=== PATIENT | male | born 1970 | race Caucasian/White ===

== ENCOUNTER → 2024-08-25 | Outpatient (CLI) | payer BC, SELFPAY ==
--- NOTE | 2024-08-25 | XR_ITS ---
Examination: PA lateral chest 2 views TECHNIQUE: Upright PA lateral chest 2 views Exam date and time: August 25, 2024 1228 hours Comparison December 14, 2014 INDICATIONS: Coughing shortness of breath beginning 9 days ago FINDINGS: Significant bibasilar left upper lobe pneumonia Normal heart size Intact osseous structures IMPRESSION: Significant bilateral pneumonia
[2024-08-25 13:43] LABS: Basophils % (Auto) 0 % (0-2.5); Eosinophils % (Auto) 1 % (0-10); Hemoglobin 15.1 g/dL (13.5-16.0); Immature Granulocytes % (Auto) 1 % (0-0); Immature Granulocytes Auto 0.04 Thou/mm3 (0.00-0.00); Lymphocytes # (Auto) 0.5 Thou/mm3 (1.0-4.8); Lymphocytes % (Auto) 8 % (10-50); Mean Corpuscular HGB Conc 35.1 g/dl (31.0-37.0); Mean Corpuscular Hemoglobin 32.3 pg (25.0-35.0); Mean Corpuscular Volume 92 fL (80-100); Monocytes # (Auto) 0.3 Thou/mm3 (0.0-0.8); Monocytes % (Auto) 6 % (0-12); Neutrophils # (Auto) 4.9 Thou/mm3 (1.8-7.7); Neutrophils % (Auto) 84 % (37-80); Nucleated Red Blood Cell % 0 /100 WBC (0); Platelet Count 212 Thou/mm3 (140-440); RDW Standard Deviation 40.6 fL (35.1-43.9); Red Blood Count 4.67 Miln/mm3 (4.50-5.90); White Blood Count 5.8 Thou/mm3 (3.8-10.6)
[2024-08-25 13:59] LABS: Alanine Aminotransferase 25 U/L (10-49); Albumin, Serum 4.5 gm/dL (3.5-5.0); Albumin/Globulin Ratio 2.3 (1.2-2.2); Alkaline Phosphatase 39 U/L (46-116); Anion Gap 5 (7-16); Aspartate Amino Transferase 32 U/L (0-34); BUN/Creatinine Ratio 17 Ratio (12-20); Bilirubin,Total 0.5 mg/dL (0.3-1.2); Blood Urea Nitrogen 20 mg/dL (9-23); Carbon Dioxide 28.8 mMol/L (20.0-31.0); Chloride 99 mMol/L (98-107); Creatinine (Component) 1.2 mg/dL (0.6-1.3); Glucose 112 mg/dL (74-106); Osmolality,Calculated 269 (275-295); Potassium 5.1 mMol/L (3.4-5.1); Sodium 133 mMol/L (136-145); Total Protein 6.5 gm/dL (5.7-8.2); eGFR > 60 See Note
[2024-08-26 16:00] LABS: Cocci Serology, IgM Negative (Negative)
[2024-08-28 14:53] LABS: Cocci Serology, IgG Negative (Negative)
== END | disposition home or self-care (01) ==
PROVIDERS: PCP Family Medicine; Referring Provider Physician Assistant; Visit Provider Radiology Diagnostic Radiology
DX: J18.9 Pneumonia, unspecified organism (principal); J11.1 Influenza due to unidentified influenza virus with other respiratory manifestations
CPT/HCPCS: 36415; 71046; 80053; 85025; 86331; 86635

== ENCOUNTER → 2024-09-08 | Outpatient (CLI) | payer BC, SELFPAY ==
--- NOTE | 2024-09-08 12:06 | XR_ITS ---
Examination: PA lateral chest 2 views TECHNIQUE: Upright PA lateral chest 2 views Exam date and time: September 08, 2024 1242 hours Comparison August 25, 2024 INDICATIONS: Difficulty breathing this week, bibasilar pneumonia on chest film 03/25/2024 FINDINGS: Bilateral pneumonia has cleared Moderate hyperexpansion Normal heart size IMPRESSION: Bilateral pneumonia has cleared
[2024-09-08 13:05] LABS: Basophils # (Auto) 0.1 Thou/mm3 (0.0-0.2); Basophils % (Auto) 1 % (0-2.5); Eosinophils # (Auto) 0.1 Thou/mm3 (0.0-0.5); Eosinophils % (Auto) 2 % (0-10); Hematocrit 44.2 % (41.0-53.0); Hemoglobin 15.1 g/dL (13.5-16.0); Immature Granulocytes % (Auto) 0 % (0-0); Immature Granulocytes Auto 0.02 Thou/mm3 (0.00-0.00); Lymphocytes % (Auto) 42 % (10-50); Mean Corpuscular HGB Conc 34.2 g/dl (31.0-37.0); Mean Corpuscular Hemoglobin 32.2 pg (25.0-35.0); Mean Corpuscular Volume 94 fL (80-100); Monocytes # (Auto) 0.5 Thou/mm3 (0.0-0.8); Monocytes % (Auto) 11 % (0-12); Neutrophils % (Auto) 43 % (37-80); Nucleated Red Blood Cell % 0 /100 WBC (0); Platelet Count 333 Thou/mm3 (140-440); RDW Standard Deviation 43.5 fL (35.1-43.9); Red Blood Count 4.69 Miln/mm3 (4.50-5.90); White Blood Count 4.7 Thou/mm3 (3.8-10.6)
[2024-09-08 13:21] LABS: Alanine Aminotransferase 24 U/L (10-49); Albumin, Serum 4.2 gm/dL (3.5-5.0); Albumin/Globulin Ratio 2.1 (1.2-2.2); Alkaline Phosphatase 46 U/L (46-116); Anion Gap 7 (7-16); Aspartate Amino Transferase 25 U/L (0-34); BUN/Creatinine Ratio 13 Ratio (12-20); Bilirubin,Total 0.7 mg/dL (0.3-1.2); Blood Urea Nitrogen 15 mg/dL (9-23); Calcium 9.2 mg/dL (8.3-10.6); Calcium (Corrected) 9.2 mg/dL (8.5-10.1); Chloride 101 mMol/L (98-107); Creatinine (Component) 1.2 mg/dL (0.6-1.3); Glucose 84 mg/dL (74-106); Osmolality,Calculated 269 (275-295); Potassium 4.5 mMol/L (3.4-5.1); Sodium 135 mMol/L (136-145); Total Protein 6.2 gm/dL (5.7-8.2); eGFR > 60 See Note
[2024-09-08 15:34] LABS: Cocci Serology, IgM Negative (Negative)
[2024-09-09 15:24] LABS: Cocci Serology, IgG Negative (Negative)
== END | disposition home or self-care (01) ==
LOC: COPL 11:52
PROVIDERS: PCP Physician Assistant; Referring Provider Physician Assistant; Visit Provider Radiology Diagnostic Radiology
DX: J18.9 Pneumonia, unspecified organism (principal)
CPT/HCPCS: 36415; 71046; 80053; 85025; 86331; 86635

== ENCOUNTER 2024-09-10 08:42 | Emergency (ER) | payer BC, SELFPAY ==
[2024-09-10 08:42] VITALS: BMI 25.1
[2024-09-10 08:50] VITALS: BP 116/72; PULSE 70; RESP 18; TEMP 36.4; O2SAT 98
--- NOTE | 2024-09-10 08:57 | XR_ITS ---
Examination: CT abdomen with intravenous contrast CT pelvis with intravenous contrast 2-D coronal reconstructions 2-D sagittal reconstructions Date and time of exam:September 10, 2020 4:10 AM Indications: Severe right lower abdominal pain onset today. CTDI: vol (mGy) 6.92 DLP: (mGycm) 348 Technique: Multiple axial sections of the abdomen and pelvis have been obtained. 64 slice high-resolution scanner used. 3 mm axial sections have been obtained, post intravenous injection 60 cc [id number] 2-D sagittal, coronal reconstructions obtained. Low dose protocols were performed. One or more of the following dose reduction techniques were used; automated exposure control, adjustment of the mA and/or KV according to patient size, use of iterative reconstruction technique. Findings: No focal liver lesions or biliary tract dilatation Contracted gallbladder No splenic or pancreatic mass Normal adrenal glands. No renal or ureteral calculi, no hydronephrosis Aorta normal size Thickened fluid-filled tubular structure medial to the cecum, axial images 118 10/14/1933, coronal images 54 through 77 suspicious for inflamed appendix No pelvic abscess Contracted urinary bladder, urinary bladder wall thickening The osseous structures are intact Impression: Findings suspicious for acute appendicitis without pelvic abscess The appearance should be clinically correlated
--- NOTE | 2024-09-10 08:57 | PD.EDRME ---
Rapid Medical Screening Exam RME Arrival date/time: 09/10/24 08:42 53-year-old male presents emergency department complaining of right lower quadrant that started this morning. Chief Complaint: Abdominal Pain Time Seen by Provider: 09/10/24 08:48 Vital signs: Vital Signs Temperature 97.6 F 09/10/24 08:50 Pulse Rate 70 09/10/24 08:50 Respiratory Rate 18 09/10/24 08:50 Blood Pressure 116/72 09/10/24 08:50 Pulse Oximetry (%) 98 09/10/24 08:50 Oxygen Delivery Method Room Air 09/10/24 08:50 Vital signs reviewed by provider: Yes
[2024-09-10] MEDS: KETOROLAC INJ 60 MG/2 ML VIAL 30 MG IM (09:09)
[2024-09-10 09:28] VITALS: BP 121/77; PULSE 59; RESP 19; TEMP 36.4; O2SAT 98
[2024-09-10 09:43] LABS: Collection Type, Urine Clean Catch; Squamous Epithelial Cell,Urine 0 /hpf (0-5)
[2024-09-10 09:50] LABS: Basophils # (Auto) 0.1 Thou/mm3 (0.0-0.2); Basophils % (Auto) 1 % (0-2.5); Eosinophils # (Auto) 0.2 Thou/mm3 (0.0-0.5); Eosinophils % (Auto) 3 % (0-10); Hematocrit 48.6 % (41.0-53.0); Hemoglobin 16.8 g/dL (13.5-16.0); Immature Granulocytes % (Auto) 0 % (0-0); Immature Granulocytes Auto 0.02 Thou/mm3 (0.00-0.00); Lymphocytes # (Auto) 1.7 Thou/mm3 (1.0-4.8); Lymphocytes % (Auto) 37 % (10-50); Mean Corpuscular HGB Conc 34.6 g/dl (31.0-37.0); Mean Corpuscular Hemoglobin 32.1 pg (25.0-35.0); Mean Corpuscular Volume 93 fL (80-100); Monocytes # (Auto) 0.5 Thou/mm3 (0.0-0.8); Monocytes % (Auto) 10 % (0-12); Neutrophils # (Auto) 2.2 Thou/mm3 (1.8-7.7); Neutrophils % (Auto) 48 % (37-80); Nucleated Red Blood Cell % 0 /100 WBC (0); Platelet Count 289 Thou/mm3 (140-440); RDW Standard Deviation 42.8 fL (35.1-43.9); Red Blood Count 5.23 Miln/mm3 (4.50-5.90); White Blood Count 4.7 Thou/mm3 (3.8-10.6)
[2024-09-10 09:53] LABS: Bilirubin,Urine Negative (Negative); Blood,Urine 1+ (Negative); Clarity,Urine Clear (Clear/Hazy); Color,Urine Lt-Yellow (Lt Yel-Yel); Culture Indicated,Urine Not Indicated; Glucose, Urine Negative (Negative); Ketones,Urine Negative (Negative); Leukocyte Esterase,Urine Negative (Negative); Nitrite,Urine Negative (Negative); PH,Urine 6.5 (5.0-7.0); Protein,Urine Negative (Neg - Trace); RBC,Urine 6 /hpf (0-3); Urobilinogen,Urine Negative mg/dL (0.0-1.0); WBC,Urine < 1 /hpf (0-5)
[2024-09-10 10:05] LABS: Alanine Aminotransferase 23 U/L (10-49); Albumin, Serum 4.6 gm/dL (3.5-5.0); Albumin/Globulin Ratio 1.9 (1.2-2.2); Alkaline Phosphatase 46 U/L (46-116); Anion Gap 8 (7-16); Aspartate Amino Transferase 19 U/L (0-34); BUN/Creatinine Ratio 15 Ratio (12-20); Bilirubin,Total 0.7 mg/dL (0.3-1.2); Blood Urea Nitrogen 18 mg/dL (9-23); Calcium 9.4 mg/dL (8.3-10.6); Calcium (Corrected) 9.4 mg/dL (8.5-10.1); Carbon Dioxide 26.1 mMol/L (20.0-31.0); Chloride 102 mMol/L (98-107); Creatinine (Component) 1.2 mg/dL (0.6-1.3); Globulin 2.4 gm/dL (2.3-3.5); Glucose 116 mg/dL (74-106); Lipase 42 U/L (12-53); Osmolality,Calculated 274 (275-295); Potassium 4.1 mMol/L (3.4-5.1); Sodium 136 mMol/L (136-145); eGFR > 60 See Note
[2024-09-10 10:50] VITALS: BP 112/71; PULSE 55; RESP 17; TEMP 36.6; O2SAT 98
[2024-09-10] MEDS: SODIUM CHLORIDE 0.9% IV (11:09)
[2024-09-10] MEDS: CEFOXITIN IV (11:09)
--- NOTE | 2024-09-10 11:19 | PC.NURSE ---
Pt states he last ate prior to 1 this morning, had coffe aroun 730 this AM, and sips of water prior to 0830 this AM
--- NOTE | 2024-09-10 11:53 | EDNOTE_ITS ---
ED General RME/HPI General Chief complaint: Abdominal Pain Stated complaint: ABD PAIN TODAY Time Seen by Provider: 09/10/24 08:48 Arrival date/time: 09/10/24 08:42 RME / HPI RME / HPI narrative: 09/10/24 08:42 RME: 53-year-old male presents emergency department complaining of right lower quadrant that started this morning. TIAGO HPI: 53-year-old male otherwise healthy, no history of abdominal surgeries, presents to the emergency department for less than 12 hours of periumbilical and lower abdominal pain. Pain is nonmigratory. He feels he has a normal appetite right now. He denies nausea vomiting or diarrhea. He denies constipation. He ate throughout yesterday without issue or change in appetite. Related Data Allergies Allergy/AdvReac Type Severity Reaction Status Date / Time No Known Allergies Allergy Verified 09/10/24 08:44 Review of Systems Review of Systems Systems Reviewed: All systems reviewed, normal except as documented ED Exam Narrative Physical exam: GENERAL APPEARANCE: AxOx4, generally well-appearing, no acute distress. HEENT: NC, AT. MMM. EOMI, clear conjunctiva, oropharynx clear. NECK: Supple without lymphadenopathy. No stiffness or restricted ROM. HEART: Normal rate and regular rhythm, normal S1/S1, no m/r/g LUNGS: CTAB, moving air well. No crackles or wheezes are heard. ABDOMEN: Soft, mild right lower quadrant tenderness, nondistended with good bowel sounds heard. BACK: No midline C/T/L spine pain or deformity, No CVAT, no obvious deformity. EXTREMITIES: Without cyanosis, clubbing or edema. MUSCULOSKELETAL: FROM of all major joints, no chest tenderness NEUROLOGICAL: Grossly nonfocal. Alert and oriented, moving all 4 extremities. CN not formally tested but appear grossly intact. Observed to ambulate with normal gait. Skin: Warm and dry without any rash. Course Quality Measures none Orders Category Date Time Status CT Screening NOW Care 09/10/24 08:57 Active Insert IV NOW Care 09/10/24 09:08 Active NPO NOW Care 09/10/24 11:03 Active Consult to General Surgery Stat Cons 09/10/24 11:05 Ordered Diet NPO (NOW) Diet 09/10/24 11:[address] abdomen pelvis w con Stat Exams 09/10/24 08:57 Completed CBC Stat Lab 09/10/24 09:37 Completed CMP [Comprehensive Metabolic Panel] Stat Lab 09/10/24 09:37 Completed Lipase Stat Lab 09/10/24 09:37 Completed Urinalysis, C/S if Indicated Stat Lab 09/10/24 09:15 Completed Cefoxitin [Mefoxin Inj] 1 gm Med 09/10/24 11:02 Discontinued Sodium Chloride 0.9% (P) [Ns 0.9% (P)] 50 ml IV X1 Ketorolac Inj [Toradol Inj] Med 09/10/24 08:57 Discontinued 30 mg IM X1 ONE Vital Signs Vital signs: Vital Signs Temperature 97.6 F 09/10/24 08:50 Pulse Rate 70 09/10/24 08:50 Respiratory Rate 18 09/10/24 08:50 Blood Pressure 116/72 09/10/24 08:50 Pulse Oximetry (%) 98 09/10/24 08:50 Oxygen Delivery Method Room Air 09/10/24 08:50 SpO2 98% on room air, not hypoxic MDM Patient data External records reviewed:: [facility] previous records Clinical information provided by:: patient Social determinants that could affect healthcare access:: none Patient has the following chronic illnesses:: None How is presenting disease/condition affected by chronic disease/condition?: no chronic disease Evaluation data The following diagnostics were reviewed and interpreted by me:: lab results and radiology exam(s) Lab and/or radiology exams considered but not ordered:: None Interpretation Summary: As per narrative Medications Medications considered but not ordered:: None Medication administrations:: Medication Administration History Discontinued Medications Cefoxitin Sodium 1 gm/ Sodium (Chloride) 50 mls @ 100 mls/hr IV X1 ONE Stop: 09/10/24 11:03 Last Infusion: 09/10/24 11:39 Dose: Infused Documented By: Admin: 09/10/24 11:09 Dose: 100 mls/hr Documented By: KULDIP Ketorolac Tromethamine (Ketorolac Inj 60 Mg/2 Ml Vial) 30 mg IM X1 ONE Stop: 09/10/24 08:58 Last Admin: 09/10/24 09:09 Dose: 30 mg Documented By: [facility] Above Consultations Consultation(s) initiated? (list below): Yes Consultation #1 (Physician, Specialty, Details): Gen surgery, Dr. Neville, patient examined bedside and notes no abdominal pain, at this point is okay for discharge with observation with Dr. Wilcox Time: 11:57 Diagnosis Differential Diagnosis ED Complaint MDM: Constipation, gastritis, mesenteric adenitis, acute appendicitis Most likely diagnosis given after review of the tests above:: See below Admission Indicated Admission indicated?: not indicated Explain why admission is indicated or not indicated:: As per narrative Admission Request Was there a request for admission?: No Disposition Plan Disposition Plan: Discharge Discharge Attestation Discharge Attestation: The patient and all family members were given an opportunity to ask questions and understood the discharge instructions. Discharge instructions specifically effects, indications for sooner follow up or return to the emergency department, and the expected course of current diagnosis. Patient condition: Stable Medical Decision Making MDM Narrative MDM Narrative: Mr. Aguirre presents to the emergency department with periumbilical pain starting less than 12 hours ago. Exam is equivocal for right lower quadrant tenderness, however CT is borderline for signs and symptoms of an early appendicitis. Laboratory testing was noncontributory and otherwise unremarkable including with a normal white blood cell count. As a result general surgery was consulted, Dr Neville, who saw the patient bedside and feel this is not consistent with appendicitis and can be given strict abdominal pain precautions and to follow-up with Dr. Wilcox. Differential Diagnosis Differential Diagnosis: Constipation, gastritis, mesenteric adenitis, acute appendicitis Lab Data 09/10/24 09:37 09/10/24 09:37 Labs: Lab Results 09/10/24 09/10/24 Range/Units 09:15 09:37 WBC 4.7 (3.8-10.6) Thou/mm3 RBC 5.23 (4.50-5.90) Miln/mm3 Hgb 16.8 H (13.5-16.0) g/dL Hct 48.6 (41.0-53.0) % MCV 93 (80-100) fL MCH 32.1 (25.0-35.0) pg MCHC 34.6 (31.0-37.0) g/dl RDW Std Deviation 42.8 (35.1-43.9) fL Plt Count 289 D (140-440) Thou/mm3 Neut % (Auto) 48 (37-80) % Lymph % (Auto) 37 (10-50) % [place] % (Auto) 10 (0-12) % Eos % (Auto) 3 (0-10) % Baso % (Auto) 1 (0-2.5) % Neut # (Auto) 2.2 (1.8-7.7) Thou/mm3 Lymph # (Auto) 1.7 (1.0-4.8) Thou/mm3 [place] # (Auto) 0.5 (0.0-0.8) Thou/mm3 Eos # (Auto) 0.2 (0.0-0.5) Thou/mm3 Baso # (Auto) 0.1 (0.0-0.2) Thou/mm3 Immature Gran # (Auto) 0.02 H (0.00-0.00) Thou/mm3 Absolute Nucleated RBC 0.00 (0.00-0.00) Thou/mm3 Immature Gran % 0 (0-0) % Nucleated RBC % 0 (0) /100 WBC Sodium 136 (136-145) mMol/L Potassium 4.1 (3.4-5.1) mMol/L Chloride 102 (98-107) mMol/L Carbon Dioxide 26.1 (20.0-31.0) mMol/L Anion Gap 8 (7-16) BUN 18 (9-23) mg/dL Creatinine 1.2 (0.6-1.3) mg/dL Estim Creat Clear Calc 75.0 (>60) mL/min eGFR > 60 (60 - ) See Note BUN/Creatinine Ratio 15 (12-20) Ratio Glucose 116 H (74-106) mg/dL Calculated Osmolality 274 L (275-295) Calcium 9.4 (8.3-10.6) mg/dL Corrected Calcium 9.4 (8.5-10.1) mg/dL Total Bilirubin 0.7 (0.3-1.2) mg/dL AST 19 (0-34) U/L ALT 23 (10-49) U/L Alkaline Phosphatase 46 (46-116) U/L Total Protein 7.0 (5.7-8.2) gm/dL Albumin 4.6 (3.5-5.0) gm/dL Globulin 2.4 (2.3-3.5) gm/dL Albumin/Globulin Ratio 1.9 (1.2-2.2) Lipase 42 (12-53) U/L Ur Collection Type Clean Catch Urine Color Lt-Yellow (Lt Yel-Yel) Urine Clarity Clear (Clear/Hazy) Urine pH 6.5 (5.0-7.0) Ur Specific [place] 1.020 (1.001-1.035) Urine Protein Negative (Neg - Trace) Urine Glucose (UA) Negative (Negative) Urine Ketones Negative (Negative) Urine Blood 1+ A (Negative) Urine Nitrite Negative (Negative) Urine Bilirubin Negative (Negative) Urine Urobilinogen (Auto) Negative (0.0-1.0) mg/dL Ur Leukocyte Esterase Negative (Negative) Urine RBC 6 H (0-3) /hpf Urine WBC < 1 (0-5) /hpf Ur Squamous Epith Cells 0 (0-5) /hpf Urine Bacteria None (None) Ur Culture Indicated? Not Indicated Discharge Plan Plan Patient Disposition: HOME (Self Care) Prescriptions/Referrals Referrals: Caitie Herrera PA-C [Primary Care Provider] - In 1 week Problem List Clinical Impression: Abdominal pain Patient/Caregiver Discharge Instructions Education Materials: ED Abdominal Pain Appendx Poss Additional Instructions: Follow-up with your primary care doctor in 2 to 3 days symptoms are not improving. [place] diet for the next 24 hours and please return to the emergency department sooner symptoms worsen or if you notice any new, concerning issues Print Language: Bangladeshi Stand Alone Forms: [employer] Award Info., Patient Portal Info Letter
== END 2024-09-10 12:30 | disposition home or self-care (01) ==
PROVIDERS: Emergency Provider Emergency Medicine; PCP Physician Assistant
DX: R10.33 Periumbilical pain (principal)
CPT/HCPCS: 36415; 74177; 80053; 81001; 83690; 85025; 96365; 96372; 99285; A4649; J0694; J1885; J7050; Q9967